=== PATIENT | female | born 1940 | race Caucasian/White ===

== ENCOUNTER 2019-04-09 10:25 | Emergency (ER) | payer MEDICARE, OTHER ==
[2019-04-09 10:49] VITALS: BP 146/56
--- NOTE | 2019-04-09 12:55 | UC ---
Skin Complaint HPI - HPI Summary HPI Summary: 78 y/o female presents to the urgent care c/o a skin tear w/ a door on the dorsal side of left forearm about 1 week ago. Pt reports for the past 2 days skin tear is now infected red and swollen. Pain at touch is 2/10. she can move left arm w/o any difficulty. pt denies Hx of MRSA, fever, SOB, chests pain, abdominal pain , N/V/d. DURÁN or wound drainage. - History of Current Complaint Chief Complaint: UCSkin Time Seen by Provider: 04/09/19 12:22 Stated Complaint: WOUND ON ARM Hx Obtained From: Patient ?: No Onset/Duration: Gradual Onset, Lasting Weeks - 1 week skin tear w/ a door which is now infected red and swollen, Worse Since - 2 days w/ redness and swelling and warm to touch Skin Exposure Onset/Duration: Weeks Ago - 1 week ago Timing: Constant Onset Severity: Moderate - skin tear on left forearm w/ a door Current Severity: Mild Pain Intensity: 2 - at touch Pain Scale Used: 0-10 Numeric Location: Discrete - dorsal side of left forearm w/ skin tear infected Character: Swelling - mild, Redness, Painful Aggravating Factor(s): Touch Alleviating Factor(s): Nothing Associated Signs & Symptoms: Positive: Rash - infected skin tear inb the dorsal side of her left forearm, Tenderness. Negative: Fever, Chills, Drainage Related History: Other: - injury w/ a door: skin tear about 1 week ago - Allergy/Home Medications Allergies/Adverse Reactions: Allergies Allergy/AdvReac Type Severity Reaction Status Date / Time No Known Allergies Allergy Verified 04/09/19 10:49 Home Medications: Home Medications Alendronate Sodium 1 tab PO WEEKLY 04/09/19 [History Confirmed 04/09/19] PMH/Surg Hx/FS Hx/Imm Hx Previously Healthy: Yes Other Endocrine History: Osteoporosis - Surgical History Surgical History: Yes Surgery Procedure, Year, and Place: C SECTION - Family History Known Family History: Positive: None - Pt denies FMHX - Social History Occupation: Retired Lives: With Family Alcohol Use: Daily Substance Use Type: None Smoking Status (MU): Never Smoked Tobacco Review of Systems All Other Systems Reviewed And Are Negative: Yes Constitutional: Positive: Negative Skin: Positive: Other - infected skin tear on the dorsal side of her left forearm, red and swollen Eyes: Positive: Negative ENT: Positive: Negative Respiratory: Positive: Negative Cardiovascular: Positive: Negative Gastrointestinal: Positive: Negative Genitourinary: Positive: Negative Motor: Positive: Negative Neurovascular: Positive: Negative Musculoskeletal: Positive: Negative Neurological: Positive: Negative Psychological: Positive: Negative Is Patient Immunocompromised?: No Physical Exam - Summary Physical Exam Summary: Vital Signs Reviewed: Yes General: well appearing, well nourished old female in no acute apparent pain distress, sitting comfortably on examining table Eye Exam: Normal Eyes: Positive: Conjunctiva Clear - PERRLA< EOMI, fundi grossly normal ENT: Positive: Normal ENT inspection, Hearing grossly normal, Pharynx normal, TMs normal Neck: Positive: Supple, Nontender, No Lymphadenopathy Respiratory: Positive: Chest non-tender, Lungs clear, Normal breath sounds, No respiratory distress Cardiovascular: Positive: RRR, No Murmur, Pulses Normal, Brisk Capillary Refill Abdomen Description: Positive: Nontender, No Organomegaly, Soft. Negative: CVA Tenderness (R), CVA Tenderness (L) Bowel Sounds: Positive: Present Musculoskeletal: Positive: Strength Intact, ROM Intact, No Edema Neurological: Positive: Alert, Muscle Tone Normal Psychological Exam: Normal Skin: Positive: Positive erythematous patch around skin tear on the dorsal side of left forearm w/ indistinct borders, warm and tender to palpation, no drainage observed. pulses WNL, capillary refill brisk, sensation WNL. Triage Information Reviewed: Yes Vital Signs: Initial Vital Signs Temp 97.9 F 04/09/19 10:46 Pulse 66 04/09/19 10:46 Resp 17 04/09/19 10:46 BP 146/56 04/09/19 10:46 Pulse Ox 100 04/09/19 10:46 Course/Dx - Course Course Of Treatment: 78 y/o female presents to the urgent care c/o a skin tear w/ a door on the dorsal side of left forearm about 1 week ago. Pt reports for the past 2 days skin tear is now infected red and swollen. Pain at touch is 2/10. she can move left arm w/o any difficulty. pt denies Hx of MRSA, fever, SOB, chests pain, abdominal pain , N/V/d. DURÁN or wound drainage. Hx obtained. PT w/ Positive erythematous patch around skin tear on the dorsal side of left forearm w/ indistinct borders, warm and tender to palpation, no drainage observed. pulses WNL, capillary refill brisk, sensation WNL on examination. Pt with cellulitis of the LF forearm s/p slin tear. Pt Rx Keflex Po as directed below. rash demarcated with a skin marker and If redness and swelling doubles in size beyond what was demarcated after 48 hrs of taking antibiotic and fever develops please go to the ER immediately.Pt's BP is elevated today advised to decrease salt in diet, monitor BP and f/u with PCP for further management. Pt understood and agreed with D/C instructions. - Differential Diagnoses - Skin Complaint Differential Diagnoses: Abscess, Cellulitis, Contact Dermatitis, Impetigo, MRSA - Diagnoses Provider Diagnosis: Skin tear, Cellulitis of left forearm, Elevated BP without diagnosis of hypertension Discharge ED - Sign-Out/Discharge Documenting (check all that apply): Patient Departure - D/c home All imaging exams completed and their final reports reviewed: No Studies - Discharge Plan Condition: Stable Disposition: HOME Prescriptions: Cephalexin CAP* [Keflex CAP*] 500 mg PO TID #21 cap Patient Education Materials: Cellulitis (ED) Referrals: Liss Cohen MD [Primary Care Provider] - 3 Days Additional Instructions: 1-Please take full course of Keflex PO Antibiotic as directed. Apply Bacitracin oint as directed on affected area 2- If redness and swelling doubles in size after 48 hrs of taking antibiotic and fever develops please go to the ER immediately. 3-Keep your hand elevated to decrease swelling and keep wound clean and dry. 4-Please F/u with your PCP in 3 days if not improvement of symptoms for further evaluation and treatment. 5-Your BP is elevated today. Please take your BP medications and decrease salt in your diet, monitor BP and if it continues to be elevated please f/u with your PCP for further management. If you develop chest pain, dizziness, visual disturbances, SOB, or severe DURÁN please go immediately to the ER for further management - Billing Disposition and Condition Condition: STABLE Disposition: Home - Attestation Statements Provider Attestation: Per institutional requirements, I have reviewed the chart, however, I was not consulted specifically or made aware of this patient by the midlevel provider. I did not personally evaluate, interact with , or disposition this patient.
== END 2019-04-09 13:33 | disposition home or self-care (01) ==
LOC: UCEAST 10:25
DX: S51.812A Laceration without foreign body of left forearm, initial encounter (principal); L03.114 Cellulitis of left upper limb; X58.XXXA Exposure to other specified factors, initial encounter; Y92.9 Unspecified place or not applicable; R03.0 Elevated blood-pressure reading, without diagnosis of hypertension
CPT/HCPCS: 99202; G0463